=== PATIENT | female | born 1965 | race Caucasian/White ===

== ENCOUNTER 2023-04-25 13:12 | Outpatient (CLI) | payer OTHER, SELFPAY ==
--- NOTE | ~2023-04-25 | XR_ITS ---
Right Knee Technique: AP, lateral, and sunrise views were obtained. Clinical History: Pain and swelling Findings: No fracture or dislocation is seen. Osseous alignment is anatomic. There is probable minima l degenerative change of the patellofemoral compartment. Soft tissues are unremarkable. No joint effu jean claude is seen. Impression: Minimal degenerative change of the patellofemoral compartment. Reviewed, dictated and finalized at location M. REL STOCK CHECKER Impression: Minimal degenerative change of the patellofemoral compartment.
== END 2023-04-25 13:13 | disposition home or self-care (01) ==
PROVIDERS: PCP Family Medicine; Visit Provider Family Medicine
DX: M25.561 Pain in right knee (principal)
CPT/HCPCS: 73562

== ENCOUNTER → 2023-05-24 12:27 | Outpatient (CLI) | payer OTHER, SELFPAY ==
--- NOTE | ~2023-05-24 | CT_ITS ---
EXAMINATION:CT lung screening DATE: 05/24/2023 12:43 INDICATION: Personal history of nicotine dependence. Current smoker with 40 pack year history. TECHNIQUE: Computed tomography (CT) of the chest was performed without intravenous contrast. Automate d exposure control and iterative reconstruction technique were employed. The dose-length product (DLP ) was 97.18 mGy-cm. COMPARISON: Chest 2 views 03/26/2018 FINDINGS: There is mild emphysema. No pleural effusion. The heart size is normal. There are coronary artery calcifications. No pericardial effusion. There is a small sliding hiatal hernia. There are low -attenuation masses in the adrenal glands bilaterally measuring up to 2.2 cm on the left, consistent with adenomas. There is calcified atherosclerosis of the aorta and many of the other arteries. There is moderate thoracic spondylosis. IMPRESSION: 1. Lung-RADS category 1: Negative. Continue annual screening with noncontrast low-dose chest CT in 12 months. Reviewed, dictated and finalized at location E. INUITY MANAGER IMPRESSION: 1. Lung-RADS category 1: Negative. Continue annual screening with noncontrast l ow-dose chest CT in 12 months.
== END ==
PROVIDERS: PCP Family Medicine; Visit Provider Family Medicine
DX: Z12.2 Encounter for screening for malignant neoplasm of respiratory organs (principal); Z87.891 Personal history of nicotine dependence
CPT/HCPCS: 71271

== ENCOUNTER 2023-06-02 16:10 | Outpatient (CLI) | payer OTHER, SELFPAY ==
[2023-06-02 17:13] LABS: Free T4 Free Thyroxine 0.19 ng/mL (0.78-2.19)
[2023-06-02 17:17] LABS: Total Triiodothyronine (T3) 0.49 NG/ML (0.97-1.69)
[2023-06-02 17:22] LABS: Thyroid Stimulating Hormone > 100.000 uIU/mL (0.465-4.680)
[2023-06-05 20:05] LABS: Thyrotropin Receptor Antibody <1.00 IU/L (<=2.00)
[2023-06-07 14:09] LABS: Thyroid Stimulating Immunoglob 437 % baseline (<140)
== END 2023-06-02 16:11 | disposition home or self-care (01) ==
LOC: ANHLAB 16:11
PROVIDERS: PCP Family Medicine; Visit Provider Internal Medicine
DX: E06.3 Autoimmune thyroiditis (principal); E07.9 Disorder of thyroid, unspecified
CPT/HCPCS: 36415; 83519; 84439; 84443; 84445; 84480

== ENCOUNTER 2023-06-24 13:25 | Outpatient (CLI) | payer OTHER, SELFPAY ==
--- NOTE | ~2023-06-24 | NM_ITS ---
EXAMINATION: NM thyroid scan w uptake DATE: 06/25/2023 14:22 INDICATION: Goiter COMPARISON: Thyroid ultrasound dated 06/24/2023 TECHNIQUE: 371 microcuries I-123 was administered orally in capsule form. Scintigraphic images of th e thyroid gland were obtained at 24 hours. Thyroid uptake was calculated by the technologist. FINDINGS: The thyroid uptake is 9.9% (normal 10-30%), with the right lobe measuring 4.2% uptake and the left 5. 8%. There is no focal area of decreased or increased activity to suggest hypofunctioning or hyperfunc tioning nodule. IMPRESSION: 1. Normal thyroid scintigraphy with borderline decreased 24-hour iodine uptake. Differential for dec reased uptake would include Roni's disease, subacute thyroiditis or excess iodine intake. Given appearance on prior thyroid ultrasound would favor the former. Reviewed, dictated and finalized at location A. TRONIC EQUIPMENT SET UP OPERATOR IMPRESSION: 1. Normal thyroid scintigraphy with borderline decreased 24-hour iodine uptake . Differential for decreased uptake would include Roni's disease, subacute thyroiditis or excess iodine intake. Given appearance on prior thyroid ultraso und would favor the former.
--- NOTE | ~2023-06-24 | US_ITS ---
EXAMINATION: US thyroid DATE: 06/24/2023 15:21 INDICATION: Goiter. Thyroid nodule. TECHNIQUE: Multiple ultrasound images of the thyroid were obtained. COMPARISON: Chest CT 05/24/2023 FINDINGS: The right thyroid lobe measures 4.3 x 1.5 x 2.2 cm. The left thyroid lobe measures 4.3 x 1.7 x 1.5 c m. The thyroid is diffusely heterogeneous and hypoechoic with increased vascularity. In the left thy roid lobe, there is an 8 mm solid, isoechoic, wider than tall nodule with smooth margin without echog enic foci (TI-RADS TR3). In the left thyroid lobe, there is a 14 mm solid, hypoechoic, wider than keyla l nodule with smooth margin without echogenic foci (TR4). IMPRESSION: 1. Heterogeneous, hypervascular thyroid, consistent with chronic lymphocytic (Roni) thyroiditis. 2. Thyroid nodules. Thyroid ultrasound is recommended in one year. Reviewed, dictated and finalized at location E. IL LEADER IMPRESSION: 1. Heterogeneous, hypervascular thyroid, consistent with chronic lymphocytic (H ashimoto) thyroiditis. 2. Thyroid nodules. Thyroid ultrasound is recommended in one year.
== END 2023-06-24 13:26 | disposition home or self-care (01) ==
PROVIDERS: PCP Family Medicine; Visit Provider Internal Medicine
DX: E06.3 Autoimmune thyroiditis (principal); E07.9 Disorder of thyroid, unspecified; E04.2 Nontoxic multinodular goiter
CPT/HCPCS: 76536; 78014; A9516

== ENCOUNTER 2023-08-20 09:44 | Outpatient (CLI) | payer OTHER, SELFPAY ==
--- NOTE | ~2023-08-20 | MR_ITS ---
EXAMINATION: MR orbits face neck wo/w con DATE: 08/20/2023 10:35 INDICATION: Proptosis. Thyrotoxicosis with diffuse goiter. TECHNIQUE: Magnetic resonance imaging (MRI) of the orbits was performed without and with 15 mL MultiH ance intravenous contrast. COMPARISON: None. FINDINGS: There are scattered areas of nonspecific increased T2-weighted signal intensity in the cere bral white matter, which is within normal limits for the patient's age. There is no intracranial hemo rrhage, acute infarction, or abnormal intracranial mass lesion. The ventricles are normal in size. Th ere is a small right mastoid effusion. There is mild mucosal thickening in the paranasal sinuses. The orbits are normal. The extraocular muscles, ocular globes, and optic nerves are normal. IMPRESSION: 1. Normal orbits. No evidence of thyroid ophthalmopathy. 2. Normal aging brain. Reviewed, dictated and finalized at location A. T DESK WORKER
== END 2023-08-20 09:45 ==
PROVIDERS: PCP Family Medicine; Referring Provider Internal Medicine
DX: E05.00 Thyrotoxicosis with diffuse goiter without thyrotoxic crisis or storm (principal); H44 Disorders of globe
CPT/HCPCS: 70543; A9577

== ENCOUNTER 2023-09-07 10:42 | Outpatient (CLI) | payer OTHER, SELFPAY ==
[2023-09-07 11:07] LABS: Alanine Aminotransferase 24 U/L (6-35); Albumin Level 4.6 g/dL (3.5-5.1); Alkaline Phosphatase 116 U/L (38-126); Anion Gap 6 mmol/L (8-16); Aspartate Amino Transferase 29 U/L (14-36); Bilirubin,Total 0.4 mg/dL (0.2-1.3); Blood Urea Nitrogen 18 mg/dL (7-17); Calcium 9.5 mg/dL (8.4-10.2); Carbon Dioxide 29 mmol/L (22-30); Chloride 104 mmol/L (98-107); Estimated Glomerular Filt Rate > 60; Glucose 105 mg/dL (65-110); Sodium 139 mmol/L (137-145)
[2023-09-07 12:47] LABS: Free T4 Free Thyroxine 0.54 ng/mL (0.78-2.19)
== END 2023-09-07 10:43 | disposition home or self-care (01) ==
PROVIDERS: PCP Family Medicine; Visit Provider Family Medicine
DX: I10 Essential (primary) hypertension (principal); E03.9 Hypothyroidism, unspecified; E07.9 Disorder of thyroid, unspecified; H57.89 Other specified disorders of eye and adnexa
CPT/HCPCS: 36415; 80053; 84439; 84443

== ENCOUNTER 2023-11-18 11:05 | Outpatient (CLI) | payer OTHER, SELFPAY ==
[2023-11-18 12:27] LABS: Total Triiodothyronine (T3) 0.54 NG/ML (0.97-1.69)
[2023-11-18 12:41] LABS: Free T4 Free Thyroxine 0.21 ng/mL (0.78-2.19)
== END 2023-11-18 11:06 | disposition home or self-care (01) ==
LOC: ANHLAB 11:06
PROVIDERS: PCP Family Medicine; Visit Provider Family Medicine
DX: E03.9 Hypothyroidism, unspecified (principal)
CPT/HCPCS: 36415; 84439; 84443; 84480

== ENCOUNTER 2024-01-06 11:04 | Outpatient (CLI) | payer OTHER, SELFPAY ==
[2024-01-06 12:39] LABS: Free T4 Free Thyroxine 0.53 ng/mL (0.78-2.19)
== END 2024-01-06 11:05 | disposition home or self-care (01) ==
PROVIDERS: PCP Family Medicine; Visit Provider Family Medicine
DX: E03.9 Hypothyroidism, unspecified (principal)
CPT/HCPCS: 36415; 84439; 84443; 84480

== ENCOUNTER 2024-02-25 09:37 | Outpatient (CLI) | payer OTHER, SELFPAY ==
--- NOTE | ~2024-02-25 | CT_ITS ---
Non-contrast CT scan of the Abdomen and Pelvis Clinical indication: Left lower quadrant pain Technique: 2.5 mm axial scans were obtained through the abdomen and pelvis without intravenous or or al contrast. Dose reduction technique was used on this scan by utilizing automated exposure control a nd iterative reconstruction technique. The dose-length product (DLP) was 654.06 mGy-cm. Findings: Images through the lung bases reveal no abnormalities. There is no evidence of renal or ureteral calculi. The kidneys and the ureters are nondilated. The liver, spleen, pancreas, and gallbladder appear normal. Bilateral low-density adrenal nodules, la rgest in the left adrenal gland measuring 2 cm, are compatible with adenomas. There are atherosclerot ic calcifications of the aorta. There is no evidence of bowel obstruction. Images through the pelvis were performed. There is no evidence of ascites or lymphadenopathy. Urinary bladder unremarkable. No pelvic mass seen. Impression: No acute abnormality. Bilateral adrenal adenomas. Reviewed, dictated and finalized at [facility]. Impression: No acute abnormality. Bilateral adrenal adenomas.
[2024-02-25 10:30] LABS: Basophils Absolute Auto 0.1 K/mm3 (0.0-0.1); Basophils Percent Auto 1.1 % (0.2-1.2); Eosinophils Absolute Auto 0.3 K/mm3 (0-0.3); Eosinophils Percent Auto 3.4 % (0-4.4); Hematocrit 41.2 % (37.0-47.0); Hemoglobin 13.1 g/dL (12.0-15.0); Immature Granulocyte Absolute 0.04 K/mm3 (0.00-0.031); Immature Granulocyte Percent A 0.5 % (0-0.5); Lymphocytes Absolute Auto 2.69 K/mm3 (0.9-3.2); Lymphocytes Percent Auto 32.6 % (18.3-44.2); Mean Corpuscular HGB Conc 31.8 g/dl (32-36); Mean Corpuscular Hemoglobin 27.4 pg (26-34); Mean Corpuscular Volume 86.2 fl (80-100); Monocytes Absolute Auto 0.8 K/mm3 (0.1-0.6); Monocytes Percent Auto 9.1 % (2.6-8.5); Neutrophils Absolute Auto 4.4 K/mm3 (1.3-6.7); Neutrophils Percent Auto 53.3 % (45.5-73.1); Platelet Count Result 301 k/mm3 (150-375); Red Blood Count 4.78 M/mm3 (4.2-5.4); Red Cell Distribution Width 13.8 % (11.5-14.5); White Blood Count 8.3 K/mm3 (4.5-10.0)
[2024-02-25 10:43] LABS: Alanine Aminotransferase 21 U/L (6-35); Albumin Level 4.3 g/dL (3.5-5.1); Alkaline Phosphatase 117 U/L (38-126); Anion Gap 10 mmol/L (4-12); Aspartate Amino Transferase 21 U/L (14-36); Bilirubin,Total 0.4 mg/dL (0.2-1.3); Blood Urea Nitrogen 18 mg/dL (7-17); Calcium 9.3 mg/dL (8.4-10.2); Carbon Dioxide 27 mmol/L (22-30); Chloride 103 mmol/L (98-107); Estimated Glomerular Filt Rate > 60; Glucose 96 mg/dL (65-110); Potassium 3.9 mmol/L (3.4-5.0); Sodium 140 mmol/L (137-145)
[2024-02-25 11:13] LABS: Total Triiodothyronine (T3) 1.14 NG/ML (0.97-1.69)
[2024-02-25 11:22] LABS: Free T4 Free Thyroxine 0.55 ng/mL (0.78-2.19)
== END 2024-02-25 09:38 | disposition home or self-care (01) ==
LOC: ANHIMG 09:40
PROVIDERS: PCP Family Medicine; Visit Provider Family Medicine
DX: D35.02 Benign neoplasm of left adrenal gland (principal); D35.01 Benign neoplasm of right adrenal gland; R10.32 Left lower quadrant pain; K62.5 Hemorrhage of anus and rectum; E03.9 Hypothyroidism, unspecified; I10 Essential (primary) hypertension
CPT/HCPCS: 36415; 74176; 80053; 84439; 84443; 84480; 85025

== ENCOUNTER 2024-04-25 09:42 | Outpatient (CLI) | payer OTHER, SELFPAY ==
--- NOTE | ~2024-04-25 | US_ITS ---
EXAMINATION: US arterial ankle brachial ind DATE: 04/25/2024 10:16 INDICATION: Peripheral vascular disease, unspecified. TECHNIQUE: Segmental pressures and plethysmographic and Doppler waveforms of the brachial and lower e xtremity arteries were obtained. COMPARISON: None. FINDINGS: Right and left brachial artery pressures of 133 mm Hg and 118 mm Hg, respectively, are concordant (no rmal difference <= 30 mmHg). The right ankle-brachial index (JOSE) is 0.79 (normal >= 0.9-1.0). The right great toe-brachial index (TBI) is 0.39 (normal >= 0.65). Arterial Doppler waveforms are monophasic at the ankle. The left JOSE is 0.83. The left TBI is 0.41. Arterial Doppler waveforms are monophasic at the ankle. IMPRESSION: 1. Mildly decreased ABIs, consistent with arterial occlusive disease. Reviewed, dictated and finalized at location A. ING MACHINE SETTER
== END 2024-04-25 09:43 | disposition home or self-care (01) ==
PROVIDERS: PCP Family Medicine; Visit Provider Family Medicine
DX: I73.9 Peripheral vascular disease, unspecified (principal)
CPT/HCPCS: 93922

== ENCOUNTER 2024-08-07 09:27 | Outpatient (CLI) | payer SELFPAY ==
--- NOTE | ~2024-08-07 | XR_ITS ---
Lumbosacral Spine: AP and lateral views Clinical History: Pain Findings: The normal lordotic curve is maintained. The vertebral bodies and posterior elements are i ntact. There is mild degenerative disc narrowing at L5-S1. There is moderate facet arthropathy at the upper lumbar spine, more advanced facet arthropathy from L4 through S1.. The sacroiliac joints are normally outlined. There are extensive atherosclerotic calcifications of the aorta. Impression: Degenerative change, as above. Reviewed, dictated and finalized at location M. N[facility] CAP FRAME Impression: Degenerative change, as above.
--- OUTSIDE RECORDS SUMMARY | 2024-08-07 12:12 | XMS_ITS | Referral Summary ---
Author Organization [facility] Address [address] [place] [address] Care Team Providers Care Stage Rigger Name Role Phone Sara Posadas MD Primary Care Provider + Sam Dennis MD Unavailable [phone] Lisa Erazo MD Unavailable [phone] Source Comments [facility],non-owned Affiliates and Associated Physician Practices is [facility] organization consisting of ambulatory clinics and hospital sitesin [place], [place], [place] and [place]. This disclosure is being madepursuant to the Care Everywhere program and may not contain all information available regarding this patient. Last updated 18.[facility] Encounters Date Type Department Care Team Description 07/27/2024 9:23 AM MANAGER HOTEL - 07/27/2024 11:59 PM MANAGER HOTEL Hospital Encounter [facility] [address] [place] [address] Annette Quevedo MD Discharge Disposition: Home or Self Care 07/27/2024 9:00 AM MANAGER HOTEL - 07/27/2024 9:22 AM MANAGER HOTEL Hospital Encounter [facility] US [address] [place] [address] Annette Queveod MD Discharge Disposition: Home or Self Care 07/14/2024 Travel 07/14/2024 3:00 PM MANAGER HOTEL Office Visit [facility] - Endocrinology [address] [facility], [place] [address] Lisa Erazo MD 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); Thyroid eye disease; Tobacco use; Essential hypertension 06/01/2024 Travel 06/01/2024 10:30 AM MANAGER HOTEL Office Visit [facility] - Ophthalmology [address] [place] [phone] Mary Ellen Cross, TABLE WORKER PACKAGER-TRAFFIC SIGNAL MECHANIC Thyroid eye disease (Primary Dx); Diplopia; Exophthalmos of both eyes 05/31/2024 Travel 05/31/2024 10:30 AM MANAGER HOTEL Office Visit [facility] - Vascular Surgery [address] [place] [phone] Annette Quevedo MD PAD (peripheral artery disease) ([facility]) (Primary Dx) from Last 3 Months Allergies Active Allergy Reactions Criticality Noted Date Comments Levothyroxine Nausea and/or Vomiting 08/11/2023 Metformin Unknown 08/11/2023 Medications * Be aware that medications may not be up to date on this document. Alwaysverify current medications with the patient. Medication Sig Dispensed Refills Start Date End Date Status Ludwintri Aerosphere 160-9-4.8 MCG/ACT inhaler Inhale 2 (two) puffs by mouth 2 times daily 07/23/2023 Active losartan-hydroCH LOROthiazide (Hyzaar) 100-25 MG tablet Take 1 (one) tablet by mouth once daily 08/04/2023 Active polyethylene glycol (Gavilyte-C) 240 g solution Drink half of prep solution at 5pm the night before colonoscopy. Finish the prep at 4am the day of test. 4000 mL 03/21/2024 Active Additional Information Patient not taking.Reported on 07/14/2024 metoprolol tartrate IR (Lopressor) 50 MG tablet Take 1 (one) tablet by mouth 2 times daily 180 tablet 3 04/07/2024 Active Varenicline Tartrate, Starter, (Chantix Starting Month ) 0.5 MG X 11 & 1 MG X 42 tablets Take by mouth as directed 05/04/2024 Active cilostazol (Pletal) 100 MG tablet Take 1 (one) tablet by mouth 2 times daily 05/04/2024 Active levothyroxine (Euthyrox) 50 MCG tablet Take 1 (one) tablet by mouth daily before breakfast 90 tablet 3 07/14/2024 Active levothyroxine (Synthroid) 175 MCG tablet TAKE 1 TABLET BY MOUTH DAILY 90 tablet 4 05/10/2024 Discontinue d(List Clean-Up) Active Problems Problem Noted Date Diagnosed Date Thyroid eye disease 05/19/2024 Diplopia 05/19/2024 Hypotropia of right eye 05/19/2024 Exophthalmos of both eyes 08/26/2023 Overview (12/27/2023): Last Assessment & Plan: OD>>OS- see Dr. Samuel's note from yesterday for measurements. Has plans for potential orbital decompression OD with possible combined sinus surgery. Patient would like to hear if there are other potential options such as Tepezza. MRI disc was brought in and uploaded to viewer today. Dilated exam largely unremarkable and no e/o compressive optic neuropathy on OCT nerve and GCC analysis. Will schedule with Dr. Roca next available. Cataract, nuclear sclerotic, both eyes 4 Overview (12/27/2023): Last Assessment & Plan: NVS, follow. Retinal drusen of both eyes 08/26/2023 Overview (12/27/2023): Last Assessment & Plan: Single druse of superior macula OS, and superotemporal midperiphery OD. Counseled on importance of smoking cessation to reduce risk of AMD and worsening STEPHANIE. 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 08/11/2023 Luxation, globe, bilateral 08/11/2023 Essential hypertension 12/02/2022 Prediabetes 11/18/2022 08/11/2023 Dyspnea on exertion 11/18/2022 08/11/2023 Hypothyroidism 05/08/2020 08/11/2023 Tobacco use 06/08/2018 08/11/2023 Immunizations Name Administration Dates Next Due Covid Moderna primary monovalent 12+ yr 0.5mL INFLUENZA VACCINE, QUADR. (F LUZONE; FLULAVAL; FLUARIX; AFLURIA QUADRIVALENT; 6MO+), 0.5 ML (IIV4) 04/03/2020 Social History Tobacco Use Types Packs/Day Years Used Date Smoking Tobacco: Every Day Cigarettes 1 45.1 Started: 06/21/1979 Smokeless Tobacco: Never Tobacco Cessation:Ready to Q uit: Not Asked; Counseling Given: Not Answered Alcohol Use Standard Drinks/Week Comments Not Currently 0 (1 standard drink = 0.6 oz pur e alcohol) abstinence 2 years AUDIT-C Answer Date Recorded Q1: How often do you have a drink containing alcohol? Never 02/11/2024 Q2: How many drinks containi ng alcohol do you have on a typical day when you are drinking? Patient does not drink Q3: How often do you have si x or more drinks on one occasion? Never 02/11/2024 Sex and Gender Information Value Date Recorded Sex Assigned at Not on file Gender Identity Not on file Sexual Orientation Not on file Last Filed Vital Signs Vital Sign Reading Time Taken Comments Blood Pressure 114/79 07/14/2024 2:47 PM MANAGER HOTEL Pulse 88 07/14/2024 2:47 PM MANAGER HOTEL Temperature 36.5 C (97.7 F) 05/31/2024 11:43 AM MANAGER HOTEL Respiratory Rate 18 05/31/2024 11:43 AM MANAGER HOTEL Oxygen Saturation 95% 07/14/2024 2:47 PM MANAGER HOTEL Inhaled Oxygen Concentration - - Weight 81.6 kg (180 lb) 07/14/2024 2:47 PM MANAGER HOTEL Height 157.5 cm (5' 2 ) 07/14/2024 2:47 PM MANAGER HOTEL Body Mass Index 32.92 07/14/2024 2:47 PM MANAGER HOTEL Functional Status Functional Status Response Date of Assess ment Is person deaf or have serious hearing difficult y? No 03/27/2024 Is person blind or have serious difficulty seein g? No 03/27/2024 Does person have serious dif ficulty walking/climbing stairs? No 03/27/2024 Does person have difficulty dressing/bathing? No 03/27/2024 Does person have difficulty doing errands alone? No 03/27/2024 Cognitive Status Response Date of Assessm ent Does person have difficulty concentrating/remembering/making decisions? No 03/27/2024 Plan of Treatment Upcoming Encounters Date Type Department Care Team (Late st Contact Info) Description 08/09/2024 11:00 AM MANAGER HOTEL Office Visit [facility] - Vascular Surgery [address] [place] [address], [place] [address] [place] [address] [place] [address] [address] [place] [address] Procedures Procedure Name Priority Date/Time Associated Diagnosis Comments VAS ARTERIAL MULTILEVEL LE Routine 07/27/2024 10:41 AM MANAGER HOTEL PAD (peripheral artery disease) (HCC) VAS CAROTID DUPLEX BILATERAL Routine 07/27/2024 10:40 AM MANAGER HOTEL PAD (peripheral artery disease) (HCC) ENDOSCOPY, COLON, SCREENING Routine 03/27/2024 11:54 AM CDT BASIC METABOLIC PANEL (CALCIUM TOTAL) STAT 12/24/2023 3:59 AM CDT from Last 3 Months or Most Recently Relevant to Health Maintenance Results * VAS Arterial Multilevel Le (07/27/2024 10:41 AM MANAGER HOTEL) Anatomical Region Laterality Modality Intravascular Ul trasound 07/27/2024 9:47 AM MANAGER HOTEL Narrative Procedure Note Rashard Grimm MD - 07/27/2024 Annette Quevedo MD VASCULAR LAB ORDERA BLES * VAS Carotid Duplex Bilateral (07/27/2024 10:40 AM MANAGER HOTEL) Anatomical Region Laterality Modality Neck Intravascular Ul trasound 07/27/2024 9:38 AM MANAGER HOTEL Narrative Procedure Note Rashard Grimm MD - 07/27/2024 Annette Quevedo MD VASCULAR LAB ORDERA BLES * ENDOSCOPY, COLON, SCREENING (03/27/2024 11:54 AM CDT) Report Endoscopy POC Endoscopy Department Report _ Patient Name: Brianna Garcia Procedure Date: 03/27/2024 11:54 AM Date of : 1965 Classification: Outpatient Gender: Female Ethnicity: Not or Race: White _ Providers: Bolivar Escalante MD Referring MD: Procedure: Colonoscopy Indications: Screening for colorectal malignant neoplasm Medications: Monitored Anesthesia Care Description of Procedure: Pre-Anesthesia Assessment: - Prior to the procedure, a History and Physical was performed, and patient medications and allergies were reviewed. The patient's tolerance of previous anesthesia was also reviewed. The risks and benefits of the procedure and the sedation options and risks were discussed with the patient. All questions were answered, and informed consent was obtained. Prior Anticoagulants: The patient has taken no anticoagulant or antiplatelet agents. ASA Grade Assessment: II - A patient with mild systemic disease. After reviewing the risks and benefits, the patient was deemed in satisfactory condition to undergo the procedure. After I obtained informed consent, the scope was passed under direct vision. Throughout the procedure, the patient's blood pressure, pulse, and oxygen saturations were monitored continuously. The PCF-[id number] was introduced through the anus and advanced to the cecum, identified by appendiceal orifice and ileocecal valve. The colonoscopy was performed without difficulty. The patient tolerated the procedure well. The quality of the bowel preparation was adequate to identify polyps greater than 5 mm in size. The ileocecal valve, appendiceal orifice, and rectum were photographed. Findings: The perianal and digital rectal examinations were normal. Two sessile polyps were found in the ascending colon and cecum. The polyps were 1 to 2 mm in size. These polyps were removed with a jumbo cold forceps. Resection and retrieval were complete. Verification of patient identification for the specimen was done by the nurse using the patient's name and date. Estimated blood loss was minimal. Multiple small and large-mouthed diverticula were found in the entire colon. The exam was otherwise without abnormality on direct and retroflexion views. Estimated Blood Loss: Estimated blood loss was minimal. Complications: No immediate complications. Impression: - Two 1 to 2 mm polyps in the ascending colon and in the cecum, removed with a jumbo cold forceps. Resected and retrieved. - Diverticulosis in the entire examined colon. - The examination was otherwise normal on direct and retroflexion views. Recommendation: - Patient has a contact number available for emergencies. The signs and symptoms of potential delayed complications were discussed with the patient. Return to normal activities tomorrow. Written discharge instructions were provided to the patient. - Resume previous diet. - Continue present medications. - Await pathology results. - Repeat colonoscopy in 7-10 years for surveillance based on pathology results. - Return to referring physician as previously scheduled. Attending Participation: I personally performed the entire procedure. Procedure Code(s): --- Professional --- 19439, Colonoscopy, flexible; with biopsy, single or multiple Diagnosis Code(s): --- Professional --- Z12.11, Encounter for screening for malignant neoplasm of colon D12.2, Benign neoplasm of ascending colon D12.0, Benign neoplasm of cecum K57.30, Diverticulosis of large intestine without perforation or abscess without bleeding CPT copyright 2021 [employer]. All rights reserved. The codes documented in this report are preliminary and upon hand cell tuber review may be revised to meet current compliance requirements. Bolivar Escalante MD 03/27/2024 12:17:17 PM This report has been signed electronically. Note Initiated On: 03/27/2024 11:54 AM Number of Addenda: 0 [facility] [address] [place] [address] [facility] 03/27/2024 11:5 4 AM CDT Bolivar Escalante MD GI PROCEDURE ORDERAB LES [facility] * (ABNORMAL) BASIC METABOLIC PANEL (CALCIUM TOTAL) (12/24/2023 3:59 AM CDT) BUN 31(H) 7 - 26 mg/dL 12/24/2023 4:50 AM [facility] Creatinine 1.04(H) 0.56 - 0.96 mg/dL 12/24/2023 4:50 AM [facility] Sodium 135(L) 136 - 145 mmol/L 12/24/2023 4:50 AM [facility] Potassium 3.3(L) 3.5 - 4.5 mmol/L 12/24/2023 4:50 AM [facility] Chloride 99 98 - 107 mmol/L 12/24/2023 4:50 AM [facility] CO2 23 22 - 29 mmol/L 12/24/2023 4:50 AM [facility] Glucose 131(H) 70 - 115 mg/dL 12/24/2023 4:50 AM [facility] Calcium 10.1 8.4 - 10.2 mg/dL 12/24/2023 4:50 AM [facility] Anion Gap 13 6 - 16 12/24/2023 4:50 AM [facility] BUN/Creatinine Ratio 30(H) 7 - 23 12/24/2023 4:50 AM [facility] Osmolality Calculated 288 275 - 295 mOsm/kg 12/24/2023 4:50 AM [facility] eGFR by CKD-EPI 63(L) >=90 mL/min/1.7 3 m2 12/24/2023 4:50 AM [facility] Blood BLOOD SPECIMEN / Unknown Venipuncture / Unknown 12/24/2023 3:59 AM CDT 12/24/2023 4:18 AM CDT Navneet Dover MD LAB - CHEMISTRY ALCIDES DUVALL Performing Organization Address City/[facility]/ZIP Co de Phone Number [facility] [address] [place] [address], [facility] [phone] from Last 3 Months or Most Recently Relevant to Health Maintenance Care Teams Stage Rigger Relationship Specialty Start Date End Date Sara Posadas MD [address] [place] [address] PCP - General Family Medicine 08/11/23 Sam Dennis MD [address] [place] [address] Physician Endocrinology 08/11/23 Lisa Erazo MD [address] [place] [address] Endocrinology 08/01/24
--- OUTSIDE RECORDS SUMMARY | 2024-08-07 12:12 | XMS_ITS | Clinical Summary ---
Author Organization [facility] [employer] Address [address] [place] [address] Care Team Providers Care Diamond Assorter Name Role Phone Sara Posadas MD Primary Care Provider + Sam Dennis MD Unavailable [phone] Lisa Erazo MD Unavailable [phone] Source Comments [facility] [employer],non-owned Affiliates and Associated Physician Practices is amultiple site organization consisting of ambulatory clinics and hospital sitesin [place], [place], [place] and [place]. This disclosure is being madepursuant to the Care Everywhere program and may not contain all information available regarding this patient. Last updated 18.[facility] [employer] Allergies Active Allergy Reactions Criticality Noted Date Comments Levothyroxine Nausea and/or Vomiting 08/11/2023 Metformin Unknown 08/11/2023 Medications * Be aware that medications may not be up to date on this document. Alwaysverify current medications with the patient. Medication Sig Dispensed Refills Start Date End Date Status Kamaljit Aerosphere 160-9-4.8 MCG/ACT inhaler Inhale 2 (two) [...] next available. Cataract, nuclear sclerotic, both eyes Overview (12/27/2023): Last Assessment & Plan: NVS, [...] Hypothyroidism 05/08/2020 08/11/2023 Tobacco use 06/08/2018 08/11/2023 Encounters Date Type Department Care Team Description 07/27/2024 9:23 AM LICENSED OPTICAL DISPENSER - 07/27/2024 11:59 PM LICENSED OPTICAL DISPENSER Hospital Encounter [facility] [place] [address] Annette Quevedo MD Discharge Disposition: Home or Self Care 07/27/2024 9:00 AM LICENSED OPTICAL DISPENSER - 07/27/2024 9:22 AM [facility] Hospital Encounter [facility]ULAR [facility] [place] [address] Annette Quevedo MD Discharge Disposition: Home or Self Care 07/14/2024 3:00 PM LICENSED OPTICAL DISPENSER Office Visit [facility] - Endocrinology [address] [place] [phone] Lisa Erazo MD 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); Thyroid eye disease; Tobacco use; Essential hypertension 07/14/2024 Travel 06/01/2024 10:30 AM LICENSED OPTICAL DISPENSER Office Visit [facility] - Ophthalmology [address] [place] [phone] Mary Ellen Cross, BUSINESS ETHICS PROFESSOR-GATE KEEPER Thyroid eye disease (Primary Dx); Diplopia; Exophthalmos of both eyes 06/01/2024 Travel 05/31/2024 10:30 AM LICENSED OPTICAL DISPENSER Office Visit [facility] - Vascular Surgery [address] [place] [phone] Annette Quevedo MD PAD (peripheral artery disease) (HCC) (Primary Dx) 05/31/2024 Travel from Last 3 Months Immunizations Name Administration Dates Next Due Covid [...] Comments Blood Pressure 114/79 07/14/2024 2:47 PM LICENSED OPTICAL DISPENSER Pulse 88 07/14/2024 2:47 PM LICENSED OPTICAL DISPENSER Temperature 36.5 C (97.7 F) 05/31/2024 11:43 AM LICENSED OPTICAL DISPENSER Respiratory Rate 18 05/31/2024 11:43 AM LICENSED OPTICAL DISPENSER Oxygen Saturation 95% 07/14/2024 2:47 PM LICENSED OPTICAL DISPENSER Inhaled Oxygen Concentration - - Weight 81.6 kg (180 lb) 07/14/2024 2:47 PM LICENSED OPTICAL DISPENSER Height 157.5 cm (5' 2 ) 07/14/2024 2:47 PM LICENSED OPTICAL DISPENSER Body Mass Index 32.92 07/14/2024 2:47 PM LICENSED OPTICAL DISPENSER Plan of Treatment Upcoming Encounters Date Type Department Care Team (Late st Contact Info) Description 08/09/2024 11:00 AM LICENSED OPTICAL DISPENSER Office Visit [facility] - Vascular Surgery [address] [place] [address], [place] [address] Annette Quevedo MD [address] [place] [address] [address] [place] [address] Health Maintenance Due Date Last Done Comments COLOGCRISTINE (AGES 45-75) - COL ON CA SCREENING 1966 CT COLONOGRAPHY - COLON CA SCREENING 1966 FIT - COLON CA SCREENING 1966 FLEX SIG - COLON CA SCREENING 1966 LIPID TESTING 1966 MAMMOGRAM 1966 PAP SMEAR 1966 HIV SCREENING 1981 HEPATITIS C SCREENING 09/16/1984 DTAP/TDAP/TD VACCINES (1 - Tdap) 1985 HEPATITIS B VACCINE (1 of 3 - 19+ 3-dose series) 1985 PNEUMOCOCCAL VACCINE 50+ (1 of 2 - PCV) 1985 LUNG CANCER SCREENING 2016 ZOSTER VACCINE (1 of 2) 2016 COVID-19 VACCINE (4 - 2023-2 5 season) 2024 07/10/2021, 11/01/2020, 10/04/2020 INFLUENZA VACCINE (#1) 2024 04/03/2020 DEPRESSION SCREENING 06/21/2024 SCREENING FOR DIABETES 12/23/2026 , 12/14/2023 COLON MONITORING 03/27/2034 03/27/2024, 03/27/2024 COLONOSCOPY - COLON CA SCREENING 03/27/2034 03/27/2024, 03/27/2024 Colorectal Cancer Screening 03/27/2034 HIB VACCINE Aged Out No longer eligi ble based on patient's age to complete this topic HPV VACCINE Aged Out No longer eligi ble based on patient's age to complete this topic MENINGOCOCCAL (Group B) VACCINE Aged Out No longer eligible b ased on patient's age to complete this topic MENINGOCOCCAL VACCINE Aged Out No denise mayank eligible based on patient's age to complete this topic Procedures Procedure Name Priority Date/Time Associated Diagnosis Comments VAS ARTERIAL MULTILEVEL LE Routine 07/27/2024 10:41 AM LICENSED OPTICAL DISPENSER PAD (peripheral artery disease) (HCC) VAS CAROTID DUPLEX BILATERAL Routine 07/27/2024 10:40 AM LICENSED OPTICAL DISPENSER PAD (peripheral artery disease) (HCC) ENDOSCOPY, COLON, SCREENING Routine 03/27/2024 11:54 AM CDT BASIC METABOLIC PANEL (CALCIUM TOTAL) STAT 12/24/2023 3:59 AM CDT from Last 3 Months or Most Recently Relevant to Health Maintenance Results * VAS Arterial Multilevel Le (07/27/2024 10:41 AM LICENSED OPTICAL DISPENSER) Anatomical Region Laterality Modality Intravascular Ul trasound 07/27/2024 9:47 AM LICENSED OPTICAL DISPENSER Narrative Procedure Note Rashard Grimm MD - 07/27/2024 Annette Quevedo MD VASCULAR LAB ORDERA BLES * VAS Carotid Duplex Bilateral (07/27/2024 10:40 AM LICENSED OPTICAL DISPENSER) Anatomical Region Laterality Modality Neck Intravascular Ul trasound 07/27/2024 9:38 AM LICENSED OPTICAL DISPENSER Narrative Procedure Note Rashard Grimm MD - 07/27/2024 Annette Quevedo MD VASCULAR LAB ORDERA BLES * ENDOSCOPY, COLON, SCREENING (03/27/2024 11:54 AM CDT) Report Endoscopy POC Endoscopy Department Report _ Patient Name: Brianna Garcia Procedure Date: 03/27/2024 11:54 AM Date of : 1965 Classification: Outpatient Gender: Female Ethnicity: Not or Race: White _ Providers: Bolivar S. Befeler, MD Referring MD: Procedure: Colonoscopy Indications: Screening [...] entire procedure. Procedure Code(s): --- Professional --- 88464, Colonoscopy, flexible; with biopsy, single or multiple Diagnosis Code(s): --- Professional --- Z12.11, Encounter for screening for malignant neoplasm of colon D12.2, Benign neoplasm of ascending colon D12.0, Benign neoplasm of cecum K57.30, Diverticulosis of large intestine without perforation or abscess without bleeding CPT copyright 2021 [employer]. All rights reserved. The codes documented in this report are preliminary and upon warehouse shipping associate review may be revised to meet current compliance requirements. Bolivar Escalante MD 03/27/2024 12:17:17 PM This report has been signed electronically. Note Initiated On: 03/27/2024 11:54 AM Number of Addenda: [address] 03/27/2024 11:5 4 AM CDT Bolivar Escalante MD GI PROCEDURE ORDERAB LES [facility]ATION * (ABNORMAL) BASIC METABOLIC PANEL (CALCIUM TOTAL) (12/24/2023 3:59 AM CDT) BUN 31(H) 7 - 26 mg/dL 12/24/2023 4:50 AM [facility] Creatinine 1.04(H) 0.56 - 0.96 mg/dL 12/24/2023 4:50 AM [facility] Sodium 135(L) 136 - 145 mmol/L 12/24/2023 4:50 AM [facility] Potassium 3.3(L) 3.5 - 4.5 mmol/L 12/24/2023 4:50 AM [facility] Chloride 99 98 - 107 mmol/L 12/24/2023 4:50 AM [facility] CO2 23 22 - 29 mmol/L 12/24/2023 4:50 AM [facility] Glucose 131(H) 70 - 115 mg/dL 12/24/2023 4:50 AM [facility] Calcium 10.1 8.4 - 10.2 mg/dL 12/24/2023 4:50 AM [facility] Anion Gap 13 6 - 16 12/24/2023 4:50 AM [facility] BUN/Creatinine Ratio 30(H) 7 - 23 12/24/2023 4:50 AM [facility] Osmolality Calculated 288 275 - 295 mOsm/kg 12/24/2023 4:50 AM [facility] eGFR by CKD-EPI 63(L) >=90 mL/min/1.7 3 m2 12/24/2023 4:50 AM [facility] Blood BLOOD SPECIMEN / Unknown Venipuncture / Unknown 12/24/2023 3:59 AM CDT 12/24/2023 4:18 AM T Navneet Dover MD LAB - CHEMISTRY ALCIDES [facility] Organization Address City/[facility]/ZIP Co de Phone Number [facility] [address] [place] [address], [facility] [phone] from Last 3 Months or Most Recently Relevant to Health Maintenance Care Teams Diamond Assorter Relationship Specialty Start Date End Date Sara Posadas MD [address] [place] [address] PCP - General Family Medicine 08/11/23 Sam Dennis MD [address] [address] Physician Endocrinology 08/11/23 Lisa Erazo MD [address] [address] 2[address] [place] [id number] Endocrinology 08/01/24
--- OUTSIDE RECORDS SUMMARY | 2024-08-07 12:12 | XMS_ITS | Clinical Summary ---
Author Organization [address] Address [address] [place] [address] [place] Steven [address] Care Team Providers Care Health Care Sanitary Technician Name Role Phone No, Physician Primary Care Provider [phone] Allergies Active Allergy Reactions Criticality Noted Date Comments Levothyroxine Nausea And Vomiting 08/11/2023 Metformin Unknown 08/11/2023 Medications predniSONE (DELTASONE) 10 mg tablet 07/08/2023 Active Breztri Aerosphere 160-9-4.8 mcg/actuation HFA aerosol inhaler Inhale 2 puffs 2 (two) times a day 06/25/2023 Active promethazine (PHENERGAN) 25 mg tablet 07/08/2023 Active albuterol HFA (PROVENTIL HFA,VENTOLIN HFA,PROAIR HFA) 90 mcg/actuation inhaler 2 puffs every 4 (four) hours as needed 06/17/2018 Active benzonatate (TESSALON) 200 mg capsule Take 1 capsule (200 mg total) by mouth 3 (three) times a day 06/08/2018 Active fluticasone propionate (Flovent HFA) 44 mcg/actuation inhaler Inhale 2 puffs 2 (two) times a day Active hydrOXYzine (ATARAX) 25 mg tablet Take 1 tablet 3 times a day by oral route as directed for 30 days. Active losartan-hydroc hlorothiazide (HYZAAR) 100-25 mg per tablet Take 1 tablet by mouth daily 08/04/2023 Active thyroid (ARMOUR THYROID) 90 mg tablet Take 1 tablet (90 mg total) by mouth daily 09/11/2023 Active semaglutide (Ozempic) 0.25 mg or 0.5 mg(2 mg/1.5 mL) pen injector injection Active Active Problems Problem Noted Date Diagnosed Date Exophthalmos of both eyes 08/26/2023 Assessment & Plan (08/26/2023 9:46 AM AUTISTIC TEACHER): OD>>OS- see Dr. Samuel's note from yesterday [...] next available. Cataract, nuclear sclerotic, both eyes Assessment & Plan (08/26/2023 9:46 AM AUTISTIC TEACHER): NVS, follow. Retinal drusen of both eyes 08/26/2023 Assessment & Plan (08/26/2023 9:48 AM AUTISTIC TEACHER): Single druse of superior macula OS, and superotemporal midperiphery OD. Counseled on importance of smoking cessation to reduce risk of AMD and worsening STEPHANIE. 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 08/11/2023 Luxation, globe, bilateral 08/11/2023 Essential hypertension 12/02/2022 Dyspnea on exertion 11/18/2022 Prediabetes 11/18/2022 Hypothyroidism 05/08/2020 Social History Tobacco Use Types Packs/Day Years Used Date Smoking Tobacco: Never Assessed Comments Unknown Sex and Gender Information Value Date Recorded Sex Assigned at Not on file Legal Sex Female 7:25 AM AUTISTIC TEACHER Gender Identity Not on file Sexual Orientation Not on file Obstetrics History Plan of Treatment Health Maintenance Due Date Last Done Comments Breast Cancer Screening-Mammogram 1966 Cervical Cancer Screening 1966 Colon Cancer Screening-Colonoscopy 1966 Depression Screening 1966 Hepatitis C Screening 1966 DTaP/Tdap/Td Vaccine (1 - Tdap) 1977 Hepatitis B Screening 1984 Regular Well Visit/Exam 18-64 1984 Zoster Vaccine (1 of 2) 2016 Covid-19 Vaccine (2023-2 5 season) 2024 07/10/2021, 11/01/2020, 10/04/2020 Influenza Vaccine (#1) 2024 04/03/2020 Pneumococcal vaccine <65 Aged Out No longer eligible based on patient's age to complete this topic Insurance CHOICE PLUS Care Teams Health Care Sanitary Technician Relationship Specialty Start Date End Date No, Physician PCP - General 07/16/23
--- OUTSIDE RECORDS SUMMARY | 2024-08-07 12:12 | XMS_ITS | Continuity of Care Document ---
Author Organization [facility] Address [address] [place] [address] Phone Care Team Providers Care Global Upstream Marketing Manager Name Role Phone Nurse, Registered Unavailable Unavailable Procedures Procedure Date Immunization Admin COVID19 Moderna Low D ose COVID19 Vaccine Moderna Immunization Admin COVID19 Moderna Low D ose COVID19 Vaccine Moderna Immunization Admin COVID19 Moderna Dose 2 Immunization Admin COVID19 Moderna Dose 1 COVID19 Vaccine Moderna Advance Directives Directive Yes / No Effective Date File Name No Information Encounters Encounter Description Practice Location Reason(s) For Visit Diagnoses Date Provider Providers Copied on Encounter [facility] , [place] [address], [place], [place], [id number], tel:[phone] COVID Mobile COVID (chief complaint) No Information Nurse Registered . [address], [id number], . tel:[phone] [facility] , [address], [id number], tel:[phone] [facility] Mobile COVID (chief complaint) No Information Nurse Registered . [address], [id number], . tel:[phone] Referring Provider: Mary Tripp [address], [address]. tel:[phone] lting Provider: Mary Tripp [address], [address]. tel:[phone] [facility] , [address], [place], [place], [id number], tel:[phone] COVID Mobile COVID (chief complaint) No Information Nurse Registered . [address], [place], [place], [id number], . tel:[phone] Referring Provider: Mary Tripp, [address], [place], [address]. tel:[phone] Family History Family Member Type Diagnosis Age At Onset No Information Immunizations Vaccine Date Status Comments COVID-19 Moderna administered Note: Pt to lerated well admin by Misael Stahl MA ; Source: New Immunization Record COVID-19 Moderna administered Note: Admin istered by Juan Simon RN ; Source: New Immunization Record COVID-19 Moderna administered Note: Pt to lerated well administered by Augustine Yang LPN ; Source: New Immunization Record Payers Payer name Insurance type Covered libertarian ID Authoriza tion(s) [facility] CI [id number] [facility] CI [id number] [facility] CI [id number] [facility] CI [id number] Social History Type Description Quantity Date Captured Comments Sex Female Smoking Status No Information Chief Complaint And Reason For Visit From encounter dated '07/10/2021 09:30'. COVID (chief complaint). Description: COVID-19 Moderna [id number] Administered New 07/11/2021 07/10/2021 11:20 AM Lata Diana 0.25 [id number] Booster 09/15/2021 [employer] Intramuscular Left Deltoid Pt tolerated well admin by Lata Lord MA, Celsey (07/11/2021) Reason For Referral Reason For Referral No Information History Of Present Illness Encounter Date Complaint History Of Prese nt Illness COVID COVID-19 Moderna [id number] Administered New 07/11/2021 07/10/2021 11:20 AM Lata Diana 0.25 [id number] Booster 09/15/2021 Modern[employer] Intramuscular Left Deltoid Pt tolerated well admin by Lata Lord MA, Celsey (07/11/2021) COVID 2 COVID-19 Moder na 207 [id number] Administered New 11/01/2020 11/01/2020 02:33 PM Lorena Hinds LPN 0.5 [id number] Dose 2 03/25/2021 [employer] Intramuscular Left Deltoid Administered by Juan Simon, Lorena Baioln LPN, LPN, Marva (11/01/2020) COVID COVID-19 Moderna 207 [id number] Administered New 10/04/2020 10/04/2020 04:56 PM Ekta Yang LPN 0.5 [id number] Dose 1 03/13/2021 [employer] Intramuscular Left Deltoid Pt tolerated well administered by Augustine Yang LPN [facility] (10/04/[facility] Functional Status Date Functional Assessmen t No Information Instructions Date Instruction Additional Infor mation No Information Assessments Type Assessment Date No Information Patient Care Teams Name Effective Dates (start - stop) Status Members No Information
--- OUTSIDE RECORDS SUMMARY | 2024-08-07 12:12 | XMS_ITS | Patient Health Summary ---
Author Organization [facility] Address [address] [place] [address] Care Team Providers Care Marketing Technologist Name Role Phone Sara Posadas MD Primary Care Provider + Sam Dennis MD Unavailable [phone] Lisa Erazo MD Unavailable Note from [facility],non-owned Affiliates and Associated Physician Practices is amultiple site organization consisting of ambulatory clinics and hospital sitesin [place], [place], [place] and [place]. This disclosure is being madepursuant to the Care Everywhere program and may not contain all information available regarding this patient. Last updated 18.[facility] Allergies * Levothyroxine(Nausea and/or Vomiting) * Metformin(Unknown) Medications * Be aware that medications may not be up to date on this document. Alwaysverify current medications with the patient. * Breztri Aerosphere 160-9-4.8 MCG/ACT inhaler(Started 07/23/2023) Inhale 2 (two) puffs by mouth 2 times daily * losartan-hydroCHLOROthiazide (Hyzaar) 100-25 MG tablet(Started 08/04/2023) Take 1 (one) tablet by mouth once daily * polyethylene glycol (Gavilyte-C) 240 g solution(Started 03/21/2024) Drink half of prep solution at 5pm the night before colonoscopy. Finish the prep at 4am the day of test. * metoprolol tartrate IR (Lopressor) 50 MG tablet(Started 04/07/2024) Take 1 (one) tablet by mouth 2 times daily 3 refills by 04/07/2025 * Varenicline Tartrate, Starter, (Chantix Starting Month ) 0.5 MG X 11 & 1 MG X 42 tablets(Started 05/04/2024) Take by mouth as directed * cilostazol (Pletal) 100 MG tablet(Started 05/04/2024) Take 1 (one) tablet by mouth 2 times daily * levothyroxine (Euthyrox) 50 MCG tablet(Started 07/14/2024) Take 1 (one) tablet by mouth daily before breakfast 3 refills by 07/14/2025 Ended Medications* levothyroxine (Synthroid) 175 MCG tablet(Started 05/10/2024) (Discontinued) TAKE 1 TABLET BY MOUTH DAILY 4 refills by 05/10/2025 Active Problems Problem Noted Date Diagnosed Date 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 (FLUZONE; FLULAVAL; FLUARIX; AFLURIA QUADRIVALENT; 6MO+), 0.5 ML (IIV4)(Given 04/03/2020) Social History Tobacco Use Types Packs/Day Years [...] Comments Blood Pressure 114/79 07/14/2024 2:47 PM FILE DRAWER FINISHER Pulse 88 07/14/2024 2:47 PM FILE DRAWER FINISHER Temperature 36.5 C (97.7 F) 05/31/2024 11:43 AM FILE DRAWER FINISHER Respiratory Rate 18 05/31/2024 11:43 AM FILE DRAWER FINISHER Oxygen Saturation 95% 07/14/2024 2:47 PM FILE DRAWER FINISHER Inhaled Oxygen Concentration - - Weight 81.6 kg (180 lb) 07/14/2024 2:47 PM FILE DRAWER FINISHER Height 157.5 cm (5' 2 ) 07/14/2024 2:47 PM FILE DRAWER FINISHER Body Mass Index 32.92 07/14/2024 2:47 PM FILE DRAWER FINISHER Procedures * VAS ARTERIAL MULTILEVEL LE(Performed 07/27/2024) Performed for PAD (peripheral artery disease) (HCC) * VAS CAROTID DUPLEX BILATERAL(Performed 07/27/2024) Performed for PAD (peripheral artery disease) (HCC) * LAB RESULTS ORDER(Performed 04/25/2024) * OPTIC NERVE ANALYSIS OCT(Performed 04/19/2024) Performed for Thyroid eye disease * LAB RESULTS ORDER(Performed 04/10/2024) * LAB RESULTS ORDER(Performed 04/10/2024) * PATHOLOGY TISSUE(Performed 03/27/2024) Performed for Screen for colon cancer, LLQ pain, BRBPR (bright red blood per rectum) * ENDOSCOPY, COLON, SCREENING(Performed 03/27/2024) * OR COLOREC CANC SCRN,COLONOSCPY HI RISK(Performed 03/27/2024) Performed for Screen for colon cancer, LLQ pain, BRBPR (bright red blood per rectum) * LAB RESULTS ORDER(Performed 03/17/2024) * LAB RESULTS ORDER(Performed 03/17/2024) * LAB RESULTS ORDER(Performed 03/17/2024) * ENDOTRACHEAL TUBE NOTE(Performed 02/11/2024) * OR EXPLORE EYE SOCKET,DECOMPRESS(Performed 02/11/2024) Performed for 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, Luxation, globe, bilateral * OR NASAL ENDOSCOPY,DX(Performed 01/24/2024) Performed for Chronic rhinitis, Acute recurrent maxillary sinusitis, 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 * OR ENDO NASAL SINUS BX POLYP DEBRID CESARIO(Performed 12/27/2023) Performed for Chronic rhinitis, Nasal crusting, Acute recurrent maxillary sinusitis * PTT [facility](Performed 12/24/2023) * PT-INR [facility](Performed 12/24/2023) * CT FACIAL BONES WO CONTRAST(Performed 12/24/2023) Performed for Nosebleed * T4 FREE(Performed 12/24/2023) * TSH REFLEX FREE T4(Performed 12/24/2023) * BASIC METABOLIC PANEL (CALCIUM TOTAL)(Performed 12/24/2023) * CBC W AUTO DIFFERENTIAL(Performed 12/24/2023) * PERIPHERAL IV NOTE(Performed 12/17/2023) * ENDOTRACHEAL TUBE NOTE(Performed 12/17/2023) * OR EXPLORE EYE SOCKET,DECOMPRESS(Performed 12/17/2023) Performed for Acute recurrent pansinusitis, 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, Luxation, globe, bilateral * OR NASAL SCOPE,BX/RMV POLYP/DEBRID(Performed 12/17/2023) Performed for Acute recurrent pansinusitis, 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, Luxation, globe, bilateral * T4 FREE(Performed 12/14/2023) Performed for Pre-op exam * TSH REFLEX FREE T4(Performed 12/14/2023) Performed for Pre-op exam * CBC W/O DIFFERENTIAL(Performed 12/14/2023) Performed for Pre-op exam * BASIC METABOLIC PANEL (CALCIUM TOTAL)(Performed 12/14/2023) Performed for Pre-op exam * EKG 12-LEAD(Performed 12/14/2023) Performed for Pre-op exam * CT SINUS WO CONTRAST(Performed 10/18/2023) Performed for 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, Acute recurrent pansinusitis * OR NASAL ENDOSCOPY,DX(Performed 09/30/2023) Performed for 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, Acute recurrent pansinusitis, Nasal congestion, Nasal turbinate hypertrophy, Deviated septum Results * VAS Arterial Multilevel Le (07/27/2024 10:41 AM FILE DRAWER FINISHER) Anatomical Region Laterality Modality Intravascular Ul trasound 07/27/2024 9:47 AM FILE DRAWER FINISHER Narrative Procedure Note Rashard Grimm MD - 07/27/2024 Annette Quevedo MD VASCULAR LAB ORDERA BLES * VAS Carotid Duplex Bilateral (07/27/2024 10:40 AM FILE DRAWER FINISHER) Anatomical Region Laterality Modality Neck Intravascular Ul trasound 07/27/2024 9:38 AM FILE DRAWER FINISHER Narrative Procedure Note Rashard Grimm MD - 07/27/2024 Annette Quevedo MD VASCULAR LAB ORDERA BLES * LAB RESULTS ORDER (04/25/2024) Only the most recent of6 resultswithin the time period is included. 04/25/2024 Narrative 04/25/2024 Ordered by an unspecified provider. Scanned Document LAB - THERAPEUTIC DR UG MONITORING ORDERABLES * OPTIC NERVE ANALYSIS OCT (04/19/2024 10:46 AM CDT) Anatomical Region Laterality Modality Head External-Camera Photography Narrative 04/19/2024 11:12 AM CDT Images from the original result were not included. OD: good signal, overall full with no signs of optic nerve damage from STEPHANIE OS: good signal, IT thinning (likely an artifact) - will recheck in 1 year [place] OD OPHTHALMOLOGY SCHED ORD W PACS * PATHOLOGY TISSUE (03/27/2024 12:02 PM CDT) Case Report Surgical Pathology Report Case: [id number] Authorizing Provider: Bolivar Escalante MD Collected: 03/27/2024 12:02 PM Ordering Location: [facility] ENDOSCOPY Received: 03/27/2024 12:49 PM Pathologist: Jennifer Arciniega MD Specimens: A) - Polyp Cecum, cecal polyp B) - Polyp Ascending, ascending polyp 03/28/2024 2:49 PM [facility] Final Diagnosis Large intestine, cecal polyp, biopsy (A): - Benign polypoid mucosa Large intestine, ascending polyp, biopsy (B): - Tubular adenoma, fragmented 03/28/2024 2:49 PM [facility] Microscopic Description and Comment Microscopic examination substantiates the final diagnosis. 03/28/2024 2:49 PM [facility] Clinical History The patient is 58-year-old woman presents for screening for colorectal malignant neoplasm. Operative procedure/findings: Colonoscopy - two 1-2 mm ascending colon and cecal polyps, resected and retrieved 03/28/2024 2:49 PM [facility] Gross Description The requisition and specimen(s) are identified with the patient's name Brianna Garcia . Received in formalin, specimen A , consists of 0.5 x 0.3 x 0.1 cm botello-pink irregular tissue fragment which is submitted in toto in a single cassette labeled A1. Received in formalin, specimen B , consists of two botello-pink irregular tissue fragments at 0.1 and 0.3 cm in greatest dimension and aggregating to 0.3 x 0.3 x 0.1 cm which are submitted in toto in a single cassette labeled B1. RB 03/28/2024 2:49 PM CDT [facility] Pathologist Location at [facility] 03/28/2024 2:49 PM [facility] Disclaimer The performance characteristics of all immunohistochemical and indirect immunofluorescence stains (if any) cited in this report were determined by the Histopathology Laboratory of [facility]. Some of these tests were developed by our own laboratory and have not been cleared or approved by the US Food and Drug Administration. The FDA does not require this test to go through premarket FDA review. These tests are used for clinical purposes. They should not be regarded as investigational or for research. This laboratory is certified under the Clinical Laboratory Improvement Amendments (CLIA) as qualified to perform high complexity clinical laboratory testing. This case has been personally reviewed and interpreted by the attending (teaching) pathologist. 03/28/2024 2:49 PM CDT [facility] Embedded Images 03/28/2024 2:49 PM CDT [facility] Biopsy, NOS POLYP OF CECUM / Unknown 03/27/2024 12:02 PM CDT 03/27/2024 12:49 PM CDT Biopsy, NOS POLYP / Unknown 03/27/2024 1 2:05 PM CDT 03/27/2024 12:49 PM CDT Bolivar Escalante MD LAB - PATHOLOGY/CYTO LOGY ORDERABLES [facility] [address] [place] [address], [facility] [phone] * ENDOSCOPY, COLON, SCREENING (03/27/2024 11:54 AM [...] entire procedure. Procedure Code(s): --- Professional --- 17459, Colonoscopy, flexible; with biopsy, single or multiple Diagnosis Code(s): --- Professional --- Z12.11, Encounter for screening for malignant neoplasm of colon D12.2, Benign neoplasm of ascending colon D12.0, Benign neoplasm of cecum K57.30, Diverticulosis of large intestine without perforation or abscess without bleeding CPT copyright 2021 [employer]. All rights reserved. The codes documented in this report are preliminary and upon cordwood cutter helper review may be revised to meet current compliance requirements. Bolivar Escalante MD 03/27/2024 12:17:17 PM This report has been signed electronically. Note Initiated On: 03/27/2024 11:54 AM Number of Addenda: [address] PROVATION 03/27/2024 11:5 4 AM CDT Bolivar Escalante MD GI PROCEDURE ORDERAB LES Performing Organization Address City/State/[facility] Co de Phone Number [facility] [employer] * ETT LINE PERFORMABLE (02/11/2024 7:45 AM CDT) Narrative Adin Pate Anes Asst - 02/11/2024 7:45 AM CDT Adin Pate Anes Asst 02/11/2024 7:48 AM Endotracheal Tube Placement: Patient Location: OR. Intubation Event Date/Time: 02/11/2024 7:30 AM Procedure: intubation (17724) Procedure Section: Sedation: under general anesthesia. Indications for Airway Management: anesthesia Procedure pretreatments used? No Induction: standard IV Patient Position: supine Mask Ventilation: easy with oral airway. Blade Type: Nya Blade Size: 3 Laryngoscopy View: grade 1 (full cords) Tube: endotracheal tube Placement: oral Tube type: cuff - inflated Tube Size (MM): 7 Depth of Insertion (CM): 21.5 Measured From: gums Cuff Inflated With: air Number of Attempts: 1. Placement Verified By: direct visualization, bilateral breath sounds, chest auscultation and CO2 monitor Tube secured with: adhesive tape and ETT elizabeth. Dentition unchanged? Yes Difficult Airway? No. Procedure Start Time: 02/11/2024 7:30 AM. Procedure End Time: 02/11/2024 7:30 AM. Procedure Total Time: 0 minutes. Staff Section Anesthesia Provider: Adin Pate Anes Asst, Performed the procedure Milvia Monroy MD GENERAL ANESTHESIA O RDERABLES * OR NASAL ENDOSCOPY,DX (01/24/2024 8:26 AM CDT) Rudy Madsen MD - 01/24/2024 8:26 AM CDT Rudy Sharma MD 01/24/2024 8:27 AM Due to the findings on physical examination, in correlation with the patient's symptomatology, the decision was made to perform a procedure today in clinic. Verbal consent obtained prior to starting procedure. Procedure note: Procedure: Rigid Nasal Endoscopy Pre Op Dx: Nasal secretions Post Op: same Anesthesia: Bilateral Nasal Cavities sprayed with Lidocaine and Neosynephrine Detail: Rigid nasal endoscopy performed bilaterally. Note: mild polypoid swelling overlying orbital decompression on right, sinuses patent bilaterally. Septum deviated superiorly. No masses or lesions seen. Right interior nasal cavity showed turbinate hypertrophy, mucus stranding present. Right middle and superior meatus show pink mucosa with mucus stranding present. Sphenoethmoidal recess inspected showing mucus stranding, intact mucosa. Left interior nasal cavity showed turbinate hypertrophy, mucus stranding present. Left middle and superior meatus show pink mucosa with mucus stranding present. Sphenoethmoidal recess inspected showing mucus stranding, intact mucosa. Rudy Sharma MD PROCEDURE/MINOR ENNIS RGICAL ORDERABLES * OR ENDO NASAL SINUS BX POLYP DEBRID CEASRIO (12/27/2023 11:11 AM CDT) Ruyd Madsen MD - 12/27/2023 11:11 AM CDT Rudy Sharma MD 12/27/2023 11:13 AM Due to the findings on physical examination, in correlation with the patient's symptomatology, the decision was made to perform a procedure today in clinic. Consent obtained prior to starting procedure. Procedure: Rigid Nasal Endoscopy with debridement Pre Op Dx: Nasal discharge, nasal crusting Post Op: same Anesthesia: Bilateral Nasal Cavities sprayed with Lidocaine and Neosynephrine Detail: Rigid nasal endoscopy performed bilaterally. Septum intact. Right nasal cavity showed significant nasal crusting and discharge. The crusts were removed with a combination of suction and Blakesley forceps. Mucopurulence was suctioned . Middle meatus cleared and small amounts of debris located on the roof of the ethmoids remained. Left nasal cavity showed mucopurulence and crustings. These were removed under endoscopic visualization using the suction and forceps. Rudy Sharma MD PROCEDURE/MINOR ENNIS RGICAL ORDERABLES * PTT [facility] (12/24/2023 11:04 AM CDT) APTT 26.5 23.0 - 38.4 Seconds 12/24/2023 11:45 AM T [facility] Comment:Suggested therapeuti c range for full dose I.V. unfractionated heparin therapy for venous thromboembolism is 71 to 109 seconds. Blood BLOOD SPECIMEN / Unknown Venipuncture / Unknown 12/24/2023 11:04 AM CDT 12/24/2023 11:12 AM CDT Navneet Welsh MD LAB - COAGULATION OR DERABLES [facility] [address] [place] [id number], [facility] [phone] * PT-INR [facility] (12/24/2023 11:04 AM CDT) PT 12.8 12.1 - 14.8 Seconds 12/24/2023 11:45 AM CDT [facility] INR 1.0 See Comment 12/24/2023 11:45 AM T [facility] Comment:The suggested therap eutic range for standard coumadin (warfarin) therapy is an INR of 2.0-3.0. For high-risk patients (Mechanical Mitral Valve Prosthesis, etc.), the suggested prophylactic therapeutic range is an INR of 2.5-3.5. Blood BLOOD SPECIMEN / Unknown Venipuncture / Unknown 12/24/2023 11:04 AM CDT 12/24/2023 11:12 AM CDT Navneet Welsh MD LAB - COAGULATION OR DERABLES [address] [address], [facility] [phone] * CT FACIAL BONES WO CONTRAST (12/24/2023 6:13 AM CDT) Anatomical Region Laterality Modality Head Computed Tomogra phy 12/24/2023 7:50 AM CDT Impressions 12/24/2023 11:59 AM CDT IMPRESSION: 1.Postsurgical changes of decompression of the right medial orbital wall, bilateral maxillary antrostomies, and nasal septoplasty. 2.Near complete opacities of the paranasal sinuses containing air bubbles with 70 HU, likely hemorrhage. 3.Mild herniation of the right medial rectus muscle and right extraconal fat tissue to the medially (series 6, image 69). The report is dictated by Cyrus Tyson MD, (Antenna Installer) I, Ankit Perez MD have personally reviewed and interpreted this examination/study. > Interpreting Provider: Ankit Perez MD on 12/24/2023 11:59 AM Narrative 12/24/2023 11:59 AM CDT PROCEDURE: CT FACIAL BONES WO CONTRAST, DATE/TIME OF EXAM: 12/24/2023 6:13 AM, LOCATION [facility] INDICATION: R04.0: Nosebleed ADDITIONAL CLINICAL INFORMATION: Ordering Provider Reason For Exam: recent sinus surgery, post-op bleeding, please eval EXAMINATION: Computed tomography (CT) of the maxillofacial bones, orbits, and paranasal sinuses without contrast TECHNIQUE: CT of the maxillofacial bones, orbits, and paranasal sinuses was performed without contrast according to standard protocol. CT dose reduction technique was used, including Automated Exposure Control. COMPARISON: No prior study is available for comparison at the time of this dictation. FINDINGS: CT sinus 10/18/2023 Postsurgical changes of decompression of the right medial orbital wall, bilateral maxillary antrostomies, and nasal septoplasty. Near complete opacities of the paranasal sinuses containing air bubbles with 70 HU, likely hemorrhage. Nasal tampons are in place bilaterally. Mild herniation of the right medial rectus muscle and extraconal fat tissue to the medially (series 6, image 69). The orbits including the globes, optic nerves, left retrobulbar fat and left extraocular muscles appear otherwise normal. The hard palate, mandible, and temporomandibular joints appear normal. The mastoid air cells are clear. Procedure Note Ankit Perez MD - 12/24/2023 PROCEDURE: CT FACIAL BONES WO CONTRAST, DATE/TIME OF EXAM: 46:13 AM, LOCATION [facility] INDICATION: R04.0: Nosebleed ADDITIONAL CLINICAL INFORMATION: Ordering Provider Reason For Exam: recent sinus surgery, post-opbleeding, please eval EXAMINATION: Computed tomography (CT) of the maxillofacial bones,orbits, and paranasal sinuses without contrast TECHNIQUE: CT of the maxillofacial bones, orbits, and paranasal sinuseswas performed without contrast according to standard protocol. CT dose reduction technique was used, including Automated Exposure Control. COMPARISON: No prior study is available for comparison at the time ofthis dictation. FINDINGS: CT sinus 10/18/2023 Postsurgical changes of decompression of the right medial orbital wall, bilateral maxillary antrostomies, and nasal septoplasty. Near complete opacities of the paranasal sinuses containing air bubbles with 70 HU, likely hemorrhage. Nasal tampons are in place bilaterally. Mild herniation of the right medial rectus muscle and extraconal fattissue to the medially (series 6, image 69). The orbits including the globes, optic nerves, left retrobulbar fat and left extraocular muscles appear otherwise normal. The hard palate, mandible, and temporomandibular joints appear normal. The mastoid aircells are clear. IMPRESSION: 1.Postsurgical changes of decompression of the right medial orbitalwall, bilateral maxillary antrostomies, and nasal septoplasty. 2.Near complete opacities of the paranasal sinuses containing airbubbles with 70 HU, likely hemorrhage. 3.Mild herniation of the right medial rectus muscle and right extraconal fat tissue to the medially (series 6, image 69). The report is dictated by Cyrus Tyson MD, (Antenna Installer) I, Ankit Perez MD have personally reviewed and interpreted this examination/study. > Interpreting Provider: Ankit Perez MD on 12/24/2023 11:59 AM Quin Diane MD CT ORDERABLES * (ABNORMAL) TSH REFLEX FREE T4 (12/24/2023 3:59 AM CDT) Only the most recent of2 resultswithin the time period is included. [facility] TSH 38.422(H) 0.350 - 4.940 uIU/mL 12/24/2023 5:08 AM [facility] Blood BLOOD SPECIMEN / Unknown Venipuncture / Unknown 12/24/2023 3:59 AM CDT 12/24/2023 4:18 AM CDT Navneet Dover MD LAB - CHEMISTRY ALCIDES DUVALL [facility] Organization Address City/State/ZIP Co de Phone Number [address] [address], [facility] [phone] * (ABNORMAL) CBC W AUTO DIFFERENTIAL (12/24/2023 3:59 AM CDT) [facility] WBC 11.1(H) 4.0 - 10.7 x10E9/L 12/24/2023 4:29 AM [facility] RBC Count 5.24(H) 3.90 - 5.20 x10E12/L 12/24/2023 4:29 AM [facility] Hemoglobin 14.3 11.9 - 15.8 g/dL 12/24/2023 4:29 AM [facility] Hematocrit 42.7 34.8 - 46.1 % 12/24/2023 4:29 AM [facility] MCV 81.5 80.0 - 98.0 fL 12/24/2023 4:29 AM [facility] MCH 27.3 26.7 - 33.6 pg 12/24/2023 4:29 AM [facility] MCHC 33.5 31.7 - 36.3 g/dL 12/24/2023 4:29 AM [facility] RDW-CV 13.5 11.3 - 14.8 % 12/24/2023 4:29 AM [facility] Platelet Count 348 150 - 420 x10E9/L 12/24/2023 4:29 AM [facility] MPV 11.2 7.8 - 11.4 fL 12/24/2023 4:29 AM [facility] Neutrophil % 67.1 41.0 - 74.0 % 12/24/2023 4:29 AM [facility] Lymphocyte % 19.4 17.0 - 47.0 % 12/24/2023 4:29 AM [facility] Monocyte % 10.6 3.0 - 11.0 % 12/24/2023 4:29 AM [facility] Eosinophil % 1.6 0.0 - 7.0 % 12/24/2023 4:29 AM [facility] Basophil % 0.7 0.0 - 1.6 % 12/24/2023 4:29 AM [facility] Immature Granulocytes % 0.6 0.0 - 1.0 % 12/24/2023 4:29 AM [facility] Neutrophil Absolute 7.45 1.60 - 7.50 x10E9/L 12/24/2023 4:29 AM [facility] Lymphocyte Absolute 2.16 1.00 - 4.40 x10E9/L 12/24/2023 4:29 AM [facility] Monocyte Absolute 1.18(H) 0.15 - 1.00 x10E9/L 12/24/2023 4:29 AM [facility] Eosinophil Absolute 0.18 0.00 - 0.60 x10E9/L 12/24/2023 4:29 AM [facility] Basophil Absolute 0.08 0.00 - 0.13 x10E9/L 12/24/2023 4:29 AM [facility] Blood BLOOD SPECIMEN / Unknown Venipuncture / Unknown 12/24/2023 3:59 AM T 12/24/2023 4:17 AM [facility] Navneet Dover MD LAB - HEMATOLOGY ORD ERABLES [facility] [address] [place] [address], [facility] [phone] * (ABNORMAL) BASIC METABOLIC PANEL (CALCIUM TOTAL) (12/24/2023 3:59 AM CDT) Only the most recent of2 resultswithin the time period is included. BUN 31(H) 7 - 26 mg/dL 12/24/2023 4:50 AM [facility] Creatinine 1.04(H) 0.56 - 0.96 mg/dL 12/24/2023 4:50 AM [facility] Sodium 135(L) 136 - 145 mmol/L 12/24/2023 4:50 AM [facility] Potassium 3.3(L) 3.5 - 4.5 mmol/L 12/24/2023 4:50 AM [facility] Chloride 99 98 - 107 mmol/L 12/24/2023 4:50 AM [facility] CO2 23 22 - 29 mmol/L 12/24/2023 4:50 AM [facility] Glucose 131(H) 70 - 115 mg/dL 12/24/2023 4:50 AM [facility] Calcium 10.1 8.4 - 10.2 mg/dL 12/24/2023 4:50 AM [facility] Anion Gap 13 6 - 16 12/24/2023 4:50 AM [facility] BUN/Creatinine Ratio 30(H) 7 - 23 12/24/2023 4:50 AM [facility] Osmolality Calculated 288 275 - 295 mOsm/kg 12/24/2023 4:50 AM [facility] eGFR by CKD-EPI 63(L) >=90 mL/min/1.7 3 m2 12/24/2023 4:50 AM [facility] Blood BLOOD SPECIMEN / Unknown Venipuncture / Unknown 12/24/2023 3:59 AM CDT 12/24/2023 4:18 AM CDT Navneet Dover MD LAB - CHEMISTRY ALCIDES DUVALL [facility] Organization Address City/State/ZIP Co de Phone Number [facility] [address] [place] [address], [facility] [phone] * (ABNORMAL) T4 FREE (12/24/2023 3:59 AM CDT) Only the most recent of2 resultswithin the time period is included. T4 Free 0.6(L) 0.7 - 1.5 ng/dL 12/24/2023 5:40 AM CDT [facility] Blood BLOOD SPECIMEN / Unknown Venipuncture / Unknown 12/24/2023 3:59 AM CDT 12/24/2023 4:18 AM CDT Navneet Dover MD LAB - CHEMISTRY ALCIDES DUVALL [facility] [address] [place] [address], [facility] [phone] * IV PLACEMENT PERFORMABLE (12/17/2023 3:16 PM CDT) Narrative Elizabeth Hollingsworth APRN-CRNA - 12/17/2023 3:16 PM CDT Elizabeth Hollingsworth APRN-CRNA 12/17/2023 3:16 PM Peripheral IV Line Placement: Patient Location: OR Insertion Time: 12/17/2023 2:45 PM Procedure: IV start ([id number]) Procedure Section: Skin Prep: alcohol. Orientation: right Location: wrist Local Anesthetic Used? No Catheter Gauge: 20 Number of Attempts: 1. Procedure Tolerance: performed while patient under general anesthesia. Staff Section Anesthesia Provider: Elizabeth Hollingsworth APRN-CRNA, Performed the procedure Additional Comments: PIV placed by Ventura Alcanatr MS4. Darci Barry MD GENERAL ANESTHESIA O RDERABLES * ETT LINE PERFORMABLE (12/17/2023 3:15 PM CDT) Narrative Elizabeth Hollingsworth APRN-CRNA - 12/17/2023 3:15 PM CDT Elizabeth Hollingsworth APRN-CRNA 12/17/2023 3:16 PM Endotracheal Tube Placement: Patient Location: OR. Intubation Event Date/Time: 12/17/2023 2:40 PM Procedure: intubation ([id number]) Procedure Section: Sedation: under general anesthesia. Indications for Airway Management: anesthesia Procedure pretreatments used? No Induction: standard IV Patient Position: sniffing Mask Ventilation: easy with oral airway. Blade Type: Nya Blade Size: 3 Laryngoscopy View: grade 2 (partial cords) Intubation Adjuncts: cricoid pressure and stylet Tube: endotracheal tube Placement: oral Tube type: cuff - inflated Tube Size (MM): 7 Depth of Insertion (CM): 21 Measured From: gums Cuff volume (mL): 7 Cuff Inflated With: air Number of Attempts: 1. Placement Verified By: direct visualization, bilateral breath sounds, chest auscultation and CO2 monitor CXR Findings: ETT in proper place. Tube secured with: adhesive tape. Dentition unchanged? Yes Difficult Airway? No. Procedure Start Time: 12/17/2023 2:40 PM. Staff Section Anesthesia Provider: Elizabeth Hollingsworth APRN-ACTIVITIES COORDINATOR, Performed the procedure Provider #1: Darci Barry MD. Additional Comments: Intubation performed by Ventura Alcantar MS4. Darci Barry MD GENERAL ANESTHESIA O RDERABLES * (ABNORMAL) CBC W/O DIFFERENTIAL (12/14/2023 2:36 PM CDT) WBC 7.5 4.0 - 10.7 x10E9/L 12/14/2023 3:00 [facility] RBC Count 5.36(H) 3.90 - 5.20 x10E12/L 12/14/2023 3:00 PM [facility] Hemoglobin 14.5 11.9 - 15.8 g/dL 12/14/2023 3:00 PM [facility] Hematocrit 45.2 34.8 - 46.1 % 12/14/2023 3:00 PM [facility] MCV 84.3 80.0 - 98.0 fL 12/14/2023 3:00 PM [facility] MCH 27.1 26.7 - 33.6 pg 12/14/2023 3:00 PM [facility] MCHC 32.1 31.7 - 36.3 g/dL 12/14/2023 3:00 PM [facility] RDW-CV 13.4 11.3 - 14.8 % 12/14/2023 3:00 PM [facility] Platelet Count 309 150 - 420 x10E9/L 12/14/2023 3:00 PM CDT [facility] MPV 10.7 7.8 - 11.4 fL 12/14/2023 3:00 PM CDT [facility] Blood BLOOD SPECIMEN / Unknown Lab Venipuncture / Unknown 12/14/2023 2:36 PM CDT 12/14/2023 2:53 PM CDT [facility] ORDERABLES Performing Organization Address [facility] Co de Phone Number [facility] [address] [place] [address], [facility] [phone] * EKG 12-LEAD (12/14/2023 1:57 PM CDT) Ventricular Rate 66 BPM [facility] MUSE Atrial Rate 66 BPM [facility] MUSE P-R Interval 170 ms [facility] MUSE QRS Duration ms 80 ms [facility] MUSE Q-T Interval ms 408 ms [facility] MUSE QTC Calculation (Bezet) 427 ms [facility] MUSE Calculated P [place] 58 degrees [facility] MUSE Calculated R [place] 54 degrees [facility] MUSE Calculated T [place] 60 degrees [facility] MUSE Interpretation EKG NORMAL SINUS RHYTHM NORMAL ECG NO PREVIOUS ECGS AVAILABLE Confirmed by ТАТЬЯНА MCMILLAN MD ([id number]) on 12/15/2023 8:15:51 AM [facility] MUSE 12/14/2023 1:57 PM CDT 12/15/2023 8:15 AM CDT Laura Fisher [facility] ECG ORDERABLES Performing Organization Address [facility] Co de Phone Number [facility] MUSE * CT SINUS WO CONTRAST (10/18/2023 8:53 AM CDT) Anatomical Region Laterality Modality Head Computed Tomogra phy 10/18/2023 10:0 4 AM CDT Impressions 10/18/2023 2:49 PM CDT IMPRESSION: 1.No acute facial bone fractures identified. 2.Mild paranasal sinus disease as outlined. The report is dictated by Cyrus Tyson MD, (Antenna Installer) Arthur Garcia MD have personally reviewed and interpreted this examination/study. 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 Additional: None. EXAMINATION: Computed tomography (CT) of the maxillofacial bones, orbits, and paranasal sinuses without contrast TECHNIQUE: CT of the maxillofacial bones, orbits, and paranasal sinuses was performed without contrast according to standard protocol. COMPARISON: No prior study is available for comparison at the time of this dictation. FINDINGS: Post-Surgical Findings: None Sinus Chambers: Minimal localized mucosal thickening in the dependent maxillary sinuses. Minimal mucosal thickening in the remaining paranasal sinuses. The imaged paranasal sinuses are otherwise grossly clear Nasal Cavities: Visualized nasal cavities are patent. Developmental Anomalies: The nasal septum is mildly deviated to the right with a septal spur directed between the left middle and inferior turbinates. Small Tabatha cells bilaterally, more classic but small on the right. Ostiomeatal Complex: Patent within the constraints of the study. The sphenoethmoidal recesses series are however mildly obscured due to the presence of mucosal thickening.. Other: The orbits appear grossly normal. The hard palate, mandible, and temporomandibular joints appear normal. No acute facial bone fractures are identified. The mastoid air cells are clear. No soft tissue abnormality is identified. 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 Additional: None. EXAMINATION: Computed tomography (CT) of the maxillofacial bones,orbits, and paranasal sinuses without contrast TECHNIQUE: CT of the maxillofacial bones, orbits, and paranasal sinuseswas performed without contrast according to standard protocol. COMPARISON: No prior study is available for comparison at the time ofthis dictation. FINDINGS: Post-Surgical Findings: None Sinus Chambers: Minimal localized mucosal thickening in the dependent maxillary sinuses. Minimal mucosal thickening in the remaining paranasal sinuses. The imaged paranasal sinuses are otherwise grossly clear Nasal Cavities: Visualized nasal cavities are patent. Developmental Anomalies: The nasal septum is mildly deviated to theright with a septal spur directed between the left middle and inferior turbinates. Small Tabatha cells bilaterally, more classic but small onthe right. Ostiomeatal Complex: Patent within the constraints of the study. The sphenoethmoidal recesses series are however mildly obscured due to the presence of mucosal thickening.. Other: The orbits appear grossly normal. The hard palate, mandible, and temporomandibular joints appear normal. No acute facial bone fracturesare identified. The mastoid air cells are clear. No soft tissue abnormalityis identified. IMPRESSION: 1.No acute facial bone fractures identified. 2.Mild paranasal sinus disease as outlined. The report is dictated by Cyrus Tyson MD, (Antenna Installer) IArthur MD have personally reviewed and interpretedthis examination/study. > Interpreting Provider: Arthur Browne MD on 10/18/2023 2:49 PM [address] Sharma MD CT ORDERABLES * OR NASAL ENDOSCOPY,DX (09/30/2023 1:16 PM CDT) Narrative Rudy Sharma MD - 09/30/2023 1:16 PM CDT Rudy Sharma MD 09/30/2023 1:18 PM Due to the findings on physical examination, in correlation with the patient's symptomatology, the decision was made to perform a procedure today in clinic. Verbal consent obtained prior to starting procedure. Procedure note: Procedure: Rigid Nasal Endoscopy Pre Op Dx: Nasal secretions Post Op: same Anesthesia: Bilateral Nasal Cavities sprayed with Lidocaine and Neosynephrine Detail: Rigid nasal endoscopy performed bilaterally. Septum deviated superiorly. Right nasal cavity showed turbinate hypertrophy, mucus stranding present. Left nasal cavity showed turbinate hypertrophy, mucus present. No masses or lesions. Rudy Sharma MD PROCEDURE/MINOR ENNIS RGICAL ORDERABLES Care Teams Marketing Technologist Relationship Specialty Start Date End Date Sara Posadas MD [address] [place] [address] PCP - General Family Medicine 08/11/23 Sam Dennis MD [address] [place] [address] Physician Endocrinology 08/11/23 Lisa Erazo MD [address] [place] [address] Endocrinology 08/01/24
--- OUTSIDE RECORDS SUMMARY | 2024-08-07 12:12 | XMS_ITS | Referral Summary ---
Author Organization [address] Address [address] [place] [address] [place] Steven [id number] Care Team Providers Care Accounting Coordinator Name Role Phone No, Physician Primary Care Provider [phone] Allergies Active Allergy Reactions Criticality Noted Date [...] 08/26/2023 Assessment & Plan (08/26/2023 9:46 AM HEMSTITCHING MACHINE OPERATOR): OD>>OS- see Dr. Samuel's note from yesterday [...] eyes Assessment & Plan (08/26/2023 9:46 AM HEMSTITCHING MACHINE OPERATOR): NVS, follow. Retinal drusen of both eyes 08/26/2023 Assessment & Plan (08/26/2023 9:48 AM HEMSTITCHING MACHINE OPERATOR): Single druse of superior macula OS, and [...] on file Legal Sex Female 7:25 AM HEMSTITCHING MACHINE OPERATOR Gender Identity Not on file Sexual Orientation Not on file Plan of Treatment Not on file Insurance [facility] CHOICE PLUS Member Subscriber Plan / Payer (Ef fective 2022-Present) Name:Brianna Garcia Relation to Subscriber:Self Name:Brianna Garcia Payer ID:[id number] (NAIC) Type:[facility] HMO/PPO Address: [place] [phone] Care Teams Accounting Coordinator Relationship Specialty Start Date End Date No, Physician PCP - General 07/16/23
--- OUTSIDE RECORDS SUMMARY | 2024-08-07 12:12 | XMS_ITS | Clinical Summary ---
Author Organization [facility] Address [address] [place] [id number] Care Team Providers Care Contact Lens Blocker Name Role Phone Unavailable Primary Care Provider Unavailabl e Social History Tobacco Use Types Packs/Day Years Used Date Smoking Tobacco: Never Assessed Comments Unknown Sex and Gender Information Value Date Recorded Sex Assigned at Not on file Legal Sex Female 7:08 PM CDT Gender Identity Not on file Sexual Orientation Not on file Plan of Treatment Health Maintenance Due Date Last Done Comments Cervical Cancer Screening Pa p Smear (Age 30 to 64) Every 3 Years 1966 Colorectal Cancer Screening Colonoscopy (10 Years) 1966 Annual Physical 1969 Hepatitis C 1984 DTaP, Tdap and Td Vaccines ( 1 - Tdap) 1985 Hepatitis B Vaccines (1 of 3 - 19+ 3-dose series) 1985 Cervical Cancer Screening Pa p with HPV Testing (Age 30 to 64) Every 5 Years 1996 Cervical Cancer Screening with HPV 1996 Mammogram Screening 2006 Zoster Vaccines (1 of 2) 2016 COVID-19 Vaccine (2023-2 5 season) 2024 Influenza Adult (#1) 2024 Meningococcal B Vaccine Aged Out No l onger eligible based on patient's age to complete this topic Meningococcal Vaccine Aged Out No denise mayank eligible based on patient's age to complete this topic Pneumococcal Vaccine: Pediat rics (0 to 5 Years) and At-Risk Patients (6 to 64 Years) Aged Out No longer eligible b ased on patient's age to complete this topic RSV Immunizations Under 20 Months Aged Out No longer eligible based on patient's age to complete this topic
== END 2024-08-07 09:28 | disposition home or self-care (01) ==
PROVIDERS: PCP Family Medicine; Visit Provider Physician Assistant
DX: M54.50 Low back pain, unspecified (principal)
CPT/HCPCS: 72100